=== PATIENT | male | born 1950 | race Caucasian/White ===

== ENCOUNTER 2019-11-22 19:03 | Inpatient (IN) | payer OTHER ==
[~2019-11-22] VITALS: Ht 182.9 cm; Wt 99.8 kg
[2019-11-22 19:03] VITALS: BP 130/77
[~2019-11-22 19:03] MED LIST: ALBU0.0912 IH; AMLO5TAB PO; BENA40TA PO; BISA5ECT2 PO; CARB15SO23 OP; DIAZ2TAB6 PO; FURO-570 PO; GABA600T12 PO; LAMO200T PO; OXYC5CAP26 PO; SENN-73 PO; SIMV10TA1 PO; TERA10CA PO; [UNRECOGNIZED DRUG - CODE] IH; [UNRECOGNIZED DRUG - CODE] NS; [UNRECOGNIZED DRUG - CODE] PO
--- NOTE | 2019-11-22 19:03 | NUR ---
69/M BIBA FROM HOME, S/P [facility] AT 1830 AFTER ACCIDENTALLY CUTTING/SLICING R 2ND AND 3RD FINGERS, WITH LACERATIONS, BLEEDING CONTROLLED AT THIS TIME. PER EMS, PT WAS ON HIS WHEELCHAIR, NO FALL OR HEAD TRAUMA. ON EMS ARRIVAL, PT WAS ON WPW SYNDROME. PT ARRIVES TO ED, AOX4, GCS 15, WHEELCHAIR-BOUND, SPEECH CLEAR, RR EVEN AND UNLABORED. LUNG SOUNDS WITH RHONCHI BL. REPORTS COUGH X2 WEEKS. S1S2 PRESENT. HX MULTIPLE SCLEROSIS, ATAXIA, [id number] SYNDROME, L ABD BACLOFEN PUMP
--- NOTE | 2019-11-22 19:03 | NUR ---
BIBA FROM HOME TO BED
--- NOTE | 2019-11-22 19:29 | NUR ---
Dr. Santillan examining patient
--- NOTE | 2019-11-22 19:41 | NUR ---
LABS DRAWN FROM IV BY CHANTE.
[2019-11-22 19:50] LABS: BASOPHILS # (AUTO) 0.1 K/uL (0.00-0.22); BASOPHILS % (AUTO) 1.9 % (0.0-2.0); EOSINOPHILS # (AUTO) 0.1 K/uL (0-0.4); EOSINOPHILS % (AUTO) 3.1 % (0.0-4.0); HEMATOCRIT 39.4 % (36-52); HEMOGLOBIN 13.6 g/dL (12.0-18.0); LYMPHOCYTES # (AUTO) 0.2 K/uL (2.0-11.5); LYMPHOCYTES % (AUTO) 6.5 % (20.5-51.1); MEAN CORPUSCULAR HEMOGLOBIN 31 pg (27-31); MEAN CORPUSCULAR HGB CONC 35 g/dL (33-37); MEAN CORPUSCULAR VOLUME 88.8 fL (80-94); MONOCYTES # (AUTO) 0.3 K/uL (0.8-1.0); MONOCYTES % (AUTO) 8.8 % (1.7-9.3); NEUTROPHILS # (AUTO) 2.5 K/uL (1.8-7.7); NEUTROPHILS % (AUTO) 79.7 % (42.2-75.2); PLATELET COUNT (AUTO) 134 K/uL (140-450); RED BLOOD CELL COUNT(AUTO) 4.43 MIL/uL (4.20-6.10); RED CELL DISTRIBUTION WIDTH 14.5 % (11.6-13.7); WHITE BLOOD COUNT (AUTO) 3.2 K/uL (4.8-10.8)
[2019-11-22 20:03] LABS: ALBUMIN 3.9 g/dL (3.4-5.0); ANION GAP 9.1 (8-16); CARBON DIOXIDE 29.9 mmol/L (21-32); CREATININE 1.1 mg/dL (0.6-1.3); TOTAL BILIRUBIN 0.6 mg/dL (0.0-1.0)
[2019-11-22 20:15] LABS: CREATINE KINASE MB 1.4 ng/mL (0-3.6)
--- NOTE | 2019-11-22 20:16 | NUR ---
PT STATES HE IS UNABLE TO GIVE URINE AT THIS TIME. WILL FOLLOW UP WITH PT.
--- NOTE | 2019-11-22 21:18 | NUR ---
RESTING IN BED, AWAKE AND ALERT. RR EVEN AND UNLABORED. PT REMAINS ON THE MONITOR. VSS. WILL CONTINUE TO MONITOR.
[2019-11-22] MEDS ORDERED: ASPIRIN 325 MG TAB PO ONE (21:50)
[2019-11-22] MEDS ORDERED: LIDOCAINE MPF 1% 5 ML ONE (21:50)
[2019-11-22] MEDS ORDERED: HYDROcodone/APAP 7.5/325 MG 1 TAB PO PRN (21:55)
[2019-11-22] MEDS ORDERED: DOCUSATE SODIUM 100 MG GELCAP PO PRN (21:55)
[2019-11-22] MEDS ORDERED: ACETAMINOPHEN 325 MG TAB PO PRN (21:55)
[2019-11-22] MEDS ORDERED: ONDANSETRON 4 MG/2 ML VIAL IM/IVP PRN (21:55)
[2019-11-22] MEDS ORDERED: MECLIZINE 25 MG TAB PO PRN (22:00)
[2019-11-22] MEDS ORDERED: BACITRACIN OINT 500 UNITS/GM PKT TP ONE ×2 (22:10→22:11)
--- NOTE | 2019-11-22 22:24 | NUR ---
PT TAKEN TO CT
--- NOTE | 2019-11-22 22:24 | NUR ---
Kirby sharpe in [facility] - 11/22/19 at 2224 by SHAGUFTA PT TAKEN TO BED 11
--- NOTE | 2019-11-22 22:27 | NUR ---
CLEANED PT'S WOUND WITH NS AND BETADINE BEFORE AND AFTER ER PHYSICIAN SUTURED THIRD DIDGET ON RIGHT HAND. PLACED DERMABOND ON PT'S SECOND DIDGET ON RIGHT HAND THEN AFTER PUT BACITRACIN AND PRESSURE DRESSING ON PT'S THIRD DIDGET. CHECK PMSC'S BEFORE AND AFTER PROCEDURE WITHOUT INCIDENT.
[2019-11-22 22:30] LABS: PROTHROMBIN TIME 9.8 secs (10.8-13.4)
[2019-11-22 22:31] LABS: APPEARANCE,URINE CLEAR (CLEAR); BILIRUBIN,URINE NEGATIVE (NEGATIVE); BLOOD, URINE NEGATIVE (NEGATIVE); COLOR,URINE YELLOW (YELLOW); LEUKOCYTE ESTERASE ,URINE NEGATIVE (NEGATIVE); NITRITE, URINE NEGATIVE (NEGATIVE); PH,URINE 6.5 (5.0-9.0); UGLUCOSE NEGATIVE (NEGATIVE)
--- NOTE | 2019-11-22 22:34 | NUR ---
PT RETURN FROM CT
[2019-11-22 22:41] LABS: FREE T4 (FREE THYROXINE) 0.91 ng/dL (0.76-1.46); MAGNESIUM 2.1 mg/dL (1.8-2.4); PHOSPHORUS 3.5 mg/dL (2.5-4.9); THYROID STIMULATING HORMONE 7.09 uIU/mL (0.34-3.74)
--- NOTE | 2019-11-22 22:50 | NUR ---
Pt laying in bed, rr even and unlabored. VSS. All needs met.
[2019-11-22] MEDS: NACL 0.9% 1,000 ML IV SCH (23:00)
[2019-11-22 23:05] VITALS: BP 171/81
--- NOTE | 2019-11-22 23:05 | NUR ---
REPORT RECEIVED FROM ED NURSE AT BEDSIDE. PT IN STABLE CONDITION. AAOX4. INTRODUCED SELF TO PT. BOARD UPDATED. NO COMPLAINTS OF PAIN. NO SOB. AFEBRILE. PT USES WHEELCHAIR. IV SITE R FA 20G RUNNING NS@60ML/HR PATENT AND INTACT. SKIN WARM, DRY, AND NOT INTACT DUE TO LACERATIONS ON THE R INDEX AND MIDDLE FINGERS. PICTURES TAKEN. BED LOCKED IN LOW POSITION. CALL BRADLEY WITHIN REACH. SAFETY PRECAUTION IN PLACE. ALL NEEDS MET AT THIS TIME.
--- NOTE | 2019-11-22 23:10 | NUR ---
Patient will be admitted to care of DR BUSTOS. Admited to TELE. Will go to room 128B. Belongings list completed. Report to ROBERT SHARIF.
[2019-11-22 23:16] LABS: BARBITURATE, URINE NEG. ng/ml (NEG <=200); BENZODIAZEPINE, URINE POS. ng/mL (NEG <=200); CANNABINOID, URINE NEG. ng/mL (NEG <=50); COCAINE, URINE NEG. ng/mL (NEG <=300); OPIATE, URINE NEG. ng/mL (NEG <=2000); PHENCYCLIDINE SCREEN,URINE NEG. ng/mL (NEG <=25)
--- NOTE | 2019-11-22 23:45 | NUR ---
PICTURES TAKEN OF R INDEX FINGER AND MIDDLE FINGER LACERATIONS.
[2019-11-22] MEDS ORDERED: guaiFENesin/CODEINE 100/10MG 5 ML UDC PO PRN (23:55)
[2019-11-23] VITALS: BP 153/73
[2019-11-23] MEDS ORDERED: BENAZEPRIL 20 MG TAB PO ONE (00:40)
[2019-11-23] MEDS ORDERED: oxyCODONE 5 MG TAB PO PRN (00:45)
--- NOTE | 2019-11-23 01:29 | NUR ---
BENAZEPRIL GIVEN PO. PT TOLERATED WELL.
[2019-11-23] MEDS ORDERED: KCL 20 MEQ/WATER INJ PREMIX 200 ML IV PRN (01:50)
--- NOTE | 2019-11-23 02:30 | NUR ---
PT SLEEPING COMFORTABLY BUT AROUSABLE. NO S/S OF DISTRESS NOTED. WILL CONTINUE TO MONITOR.
[2019-11-23 04:00] VITALS: BP 145/80
--- NOTE | 2019-11-23 05:10 | NUR ---
PT SLEEPING COMFORTABLY BUT AROUSABLE. NO S/S OF DISTRESS NOTED. NO COMPLAINTS OF PAIN. NO SOB. AFEBRILE. WILL CONTINUE TO MONITOR.
[2019-11-23 06:27] LABS: ANION GAP 12.1 (8-16); CARBON DIOXIDE 27.3 mmol/L (21-32); POTASSIUM 3.4 mmol/L (3.5-5.1)
[2019-11-23 06:52] LABS: BASOPHILS % (AUTO) 0.5 % (0.0-2.0); EOSINOPHILS # (AUTO) 0.2 K/uL (0-0.4); HEMATOCRIT 36.3 % (36-52); HEMOGLOBIN 12.2 g/dL (12.0-18.0); LYMPHOCYTES # (AUTO) 0.2 K/uL (2.0-11.5); LYMPHOCYTES % (AUTO) 5.4 % (20.5-51.1); MEAN CORPUSCULAR HEMOGLOBIN 31 pg (27-31); MEAN CORPUSCULAR HGB CONC 34 g/dL (33-37); MEAN CORPUSCULAR VOLUME 90.2 fL (80-94); MONOCYTES # (AUTO) 0.3 K/uL (0.8-1.0); MONOCYTES % (AUTO) 10.7 % (1.7-9.3); NEUTROPHILS # (AUTO) 2.4 K/uL (1.8-7.7); NEUTROPHILS % (AUTO) 78.4 % (42.2-75.2); PLATELET COUNT (AUTO) 133 K/uL (140-450); RED BLOOD CELL COUNT(AUTO) 4.02 MIL/uL (4.20-6.10); RED CELL DISTRIBUTION WIDTH 14.6 % (11.6-13.7); WHITE BLOOD COUNT (AUTO) 3.1 K/uL (4.8-10.8)
--- NOTE | 2019-11-23 07:15 | NUR ---
RECEIVED BEDSIDE REPORT FROM NIGHTSHIFT NURSE. PT RESTING IN BED UPON ARRIVAL. ABLE TO MAKE NEEDS KNOWN. SKIN WARM AND DRY TO TOUCH. RESPIRATIONS EVEN AND UNLABORED WITH NO SOB OR RESPIRATORY DISTRESS. IV SITE IN RFA 20G IS CLEAN, DRY, AND INTACT. SAFETY MEASURES IN PLACE. WILL CONTINUE TO MONITOR.
[2019-11-23 08:00] VITALS: BP 143/74
[2019-11-23] MEDS: NACL 0.9% 1,000 ML IV SCH (08:08)
--- NOTE | 2019-11-23 08:23 | NUR ---
PATIENT HAS BEEN SCREENED AND CATEGORIZED MODERATE NUTRITION RISK. PATIENT WILL BE SEEN WITHIN 3-5 DAYS OF ADMISSION. 11/25/19 11/27/[address]
--- NOTE | 2019-11-23 08:30 | NUR ---
PT SAID THAT HE WANTS TO GO HOME TODAY BECAUSE "HOSPITALS ARE FOR SICK PEOPLE AND I AM NOT SICK." EDUCATED PT ON PURPOSE ON PATIENT SAFETY AND THE POSSIBILITY OF BEING DISCHARGED TODAY. SAFETY MEASURES IN PLACE. WILL CONTINUE TO MONITOR.
[2019-11-23] MEDS ORDERED: GABAPENTIN 300 MG CAP PO SCH ×2 (09:00)
[2019-11-23] MEDS ORDERED: BENAZEPRIL 20 MG TAB PO SCH (09:00)
[2019-11-23] MEDS ORDERED: NON-FORMULARY ITEM (Gabapentin 600 MG) PO SCH (09:00)
--- NOTE | 2019-11-23 09:45 | NUR ---
ADMINISTERED MEDICATION PRESCRIBED PER MD ORDER. PT TOLERATED WELL. MEDICATION EDUCATION PERFORMED. PT APHASIC AND UNABLE TO VERBALIZE UNDERSTANDING. SAFETY MEASURES IN PLACE. WILL CONTINUE TO MONITOR.
--- NOTE | 2019-11-23 11:04 | NUR ---
DISCHARGE PLANNING: [facility] INFORMED ME THAT PATIENT INSURANCE IS NOT MEDICARE A AND B AND IT IS [employer] , [facility]. CONTACTED CLAUDETTE PINK OF [facility] AND INFORMED HER OF THIS ADMISSION. SHE CONFIRMED THAT THE PATIENT IS WITH THEM STARTING Nov OF THIS YEAR. SHE ALSO STATED THAT THE ADMITTING DOCTOR SHOULD BE SWITCHED TO [facility]. DR. LOUIS MADE AWARE AND PLACED A NEW ORDER IN. Addendum: 11/23/[address] CM I WAS INFORMED BY DR GE THAT PATIENT SIGNED AMA. CLAUDETTE PINK OF [facility] MADE AWARE.
--- NOTE | 2019-11-23 11:30 | NUR ---
PATIENT STILL WANTED TO GO HOME EVEN IF THAT MEANT GOING AMA. RESIDENT INFORMED PATIENT ABOUT AMA AND WHAT ALL IT ENTAILS WITH NURSE AT BEDSIDE. PT AGREED AND SIGNED AMA PAPERWORK WITH NURSE AND RESIDENT AT BEDSIDE. EDUCATED PATIENT ON RISKS OF LEAVING AMA. PT VERBALIZED THE RISKS OF LEAVING AMA. PT AGREED OF LEAVING AMA. DOCUMENT FILED IN CHART. ID BAND AND INTACT IV CANNULA REMOVED. PT GATHERED ALL OF HIS BELONGINGS AND CHANGED INTO HIS OWN CLOTHES. PT WHEELED OUT TO HIS PRIVATE VEHICLE.
[2019-11-23] MEDS ORDERED: DIAZEPAM 2 MG TAB PO SCH (13:00)
[2019-11-24 06:11] LABS: T4 (THYROXINE) 7.4 ug/dL (4.5-12.0)
== END 2019-11-23 11:30 | disposition left against medical advice (07) | DRG 41 ==
LOC: MED 19:03 → MMU 21:57
PROVIDERS: ADMIT General Practice; ATTEND General Practice
PROC: 0XQNXZZ Repair Right Index Finger, External Approach (ICD-10-PCS; principal; 2019-11-22)
PROC: 0XQQXZZ Repair Right Middle Finger, External Approach (ICD-10-PCS; 2019-11-22)
DX: G90.8 Other disorders of autonomic nervous system (principal); J98.11 Atelectasis; G35 Multiple sclerosis; G62.9 Polyneuropathy, unspecified; R55 Syncope and collapse; I10 Essential (primary) hypertension; G89.4 Chronic pain syndrome; F41.9 Anxiety disorder, unspecified; S61.210A Laceration without foreign body of right index finger without damage to nail, initial encounter; S61.214A Laceration without foreign body of right ring finger without damage to nail, initial encounter; W18.39XA Other fall on same level, initial encounter; Y93.89 Activity, other specified; Y92.89 Other specified places as the place of occurrence of the external cause; Y99.8 Other external cause status
CPT/HCPCS: 36415; 70450; 71045; 80048; 80053; 80305; 81003; 82140; 82150; 82550; 82553; 83036; 83690; 83735; 83880; 84100; 84436; 84439; 84443; 84479; 84484; 85025; 85610; 85730; 87081; 93005; 93880; 99285; J2001; J3480; J7030; J8597; Q0092